=== PATIENT | female | born 1975 | race Caucasian/White ===

== ENCOUNTER 2021-01-14 14:38 | Emergency (ER) | payer SELFPAY ==
[2021-01-14 15:35] LABS: #Eosinphils 0.6 thou/uL (0.0-0.7); #Lymphocytes 1.3 thou/uL (1.20-3.40); #Monocytes 0.8 thou/uL (0.11-0.59); #Neutrophils 5.2 thou/uL (1.40-6.50); %Basophils 0.3 % (0.0-1.0); %Lymphocytes 16.5 % (21.0-51.0); %Monocytes 10.2 % (0.0-10.0); Hemoglobin 13.4 g/dL (12.0-16.0); Mean Corpuscular HGB CONC 33.2 g/dL (32.0-36.0); Mean Corpuscular Hemoglobin 33.2 pg (27.0-31.0); Mean Platelet Volume 8.7 fL (7.4-10.4); Platelet Count 162 thou/uL (130-400); Red Blood Cell (RBC) Count 4.03 mill/uL (4.20-5.40); White Blood Cell (WBC) Count 7.9 thou/uL (4.8-10.8)
[2021-01-14 15:52] LABS: ALT (SGPT) 21 U/L (8-55); AST (SGOT) 20 U/L (5-34); Albumin 3.6 g/dL (3.5-5.0); Alkaline Phosphatase 110 U/L (40-110); Anion Gap 12 mmol/L (10-20); BUN (Urea Nitrogen) 21 mg/dL (7.0-18.7); Calc. Creatinine Clearance 0 mL/min (70-130); Calcium 8.6 mg/dL (7.8-10.44); Carbon Dioxide 23 mmol/L (22-29); Chloride 106 mmol/L (98-107); Globulin 2.9 g/dL (2.4-3.5); Glucose 86 mg/dL (70-105); Protein, Total 6.5 g/dL (6.0-8.3); Sodium 137 mmol/L (136-145)
[2021-01-14 16:14] LABS: CKMB 2.3 ng/mL (0-6.6)
[2021-01-14] MEDS ORDERED: Furosemide 20 MG/2 ML VIAL ONE (16:49)
== END 2021-01-14 19:06 | disposition home or self-care (01) ==
LOC: ERS 14:38
DX: B37.2 Candidiasis of skin and nail (principal); L03.116 Cellulitis of left lower limb; R21 Rash and other nonspecific skin eruption; R06.02 Shortness of breath; R60.0 Localized edema; I10 Essential (primary) hypertension; F17.210 Nicotine dependence, cigarettes, uncomplicated
CPT/HCPCS: 71045; 80053; 82553; 83880; 84484; 85025; 93005; 96374; J1940

== ENCOUNTER 2021-02-28 17:11 | Observation (INO) | payer SELFPAY ==
[2021-02-28] MEDS ORDERED: Calcium Carbonate 500 MG ChewTAB PO PRN (19:47)
[2021-02-28] MEDS ORDERED: Loperamide HCl 2 MG CAP PO PRN (19:47)
[2021-02-28] MEDS ORDERED: Guaifenesin DM 100-10/5 ML UDCUP PO PRN (19:47)
[2021-02-28] MEDS ORDERED: Ondansetron PF 4 MG/2 ML Vial IVP PRN (19:47)
[2021-02-28] MEDS ORDERED: Zolpidem Tartrate 5 MG TAB PO PRN (19:47)
[2021-02-28] MEDS ORDERED: HYDROcodone/Acetaminophen 5/325 mg Tablet PO PRN (19:47)
[2021-02-28] MEDS ORDERED: Senokot S 8.6-50 MG TAB PO PRN (19:47)
[2021-02-28] MEDS ORDERED: Bisacodyl 10 MG SUPP PR PRN (19:47)
[2021-02-28] MEDS ORDERED: Ondansetron ODT 4 MG TAB PO PRN (19:47)
[2021-02-28] MEDS ORDERED: Acetaminophen 325 MG TAB PO PRN (19:47)
[2021-02-28] MEDS ORDERED: Nitroglycerin 0.4 MG TAB (25 Tab Bottle) SL PRN (19:50)
[2021-02-28 20:47] VITALS: BMI 66.5
[2021-02-28] MEDS ORDERED: Atorvastatin Calcium 40 MG TAB PO SCH (21:00)
[2021-02-28] MEDS: Doxycycline 100 MG CAP PO SCH (21:21)
[2021-02-28] MEDS: Betamethasone 0.1% Cream 15 GM TUBE TOP SCH (21:22)
[2021-02-28] MEDS: Famotidine 20 MG TAB PO SCH (21:22)
[2021-02-28 22:25] LABS: SARS-CoV-2 NAA Rapid Test Not Detected (NotDetected)
[2021-03-01 05:02] LABS: #Basophils 0.1 thou/uL (0.0-0.2); #Eosinphils 0.2 thou/uL (0.0-0.7); #Lymphocytes 1.7 thou/uL (1.20-3.40); #Neutrophils 7.9 thou/uL (1.40-6.50); %Basophils 0.5 % (0.0-1.0); %Eosinophils 1.7 % (0.0-10.0); %Lymphocytes 15.3 % (21.0-51.0); %Monocytes 9.6 % (0.0-10.0); %Neutrophils 72.9 % (42.0-75.0); Hemoglobin 14.8 g/dL (12.0-16.0); Mean Corpuscular HGB CONC 32.2 g/dL (32.0-36.0); Mean Corpuscular Hemoglobin 31.6 pg (27.0-31.0); Mean Corpuscular Volume 98.3 fL (78.0-98.0); Mean Platelet Volume 8.3 fL (7.4-10.4); Platelet Count 235 thou/uL (130-400); RBC Distribution Width 14.5 % (11.5-14.5); Red Blood Cell (RBC) Count 4.67 mill/uL (4.20-5.40); White Blood Cell (WBC) Count 10.9 thou/uL (4.8-10.8)
[2021-03-01] MEDS: Furosemide 40 MG/4 ML VIAL SLOW IVP SCH ×2 (05:05→13:23)
[2021-03-01 05:28] LABS: ALT (SGPT) 30 U/L (8-55); AST (SGOT) 23 U/L (5-34); Albumin 3.8 g/dL (3.5-5.0); Alkaline Phosphatase 111 U/L (40-110); Anion Gap 15 mmol/L (10-20); BUN (Urea Nitrogen) 29 mg/dL (7.0-18.7); Bilirubin, Total 1.5 mg/dL (0.2-1.2); CRP (Inflammatory) 1.57 mg/dL (= or < 0.5); Calc. Creatinine Clearance 170 mL/min (70-130); Calcium 9.1 mg/dL (7.8-10.44); Carbon Dioxide 18 mmol/L (22-29); Cardiac Risk 3.2 (Less than 4.5); Chloride 106 mmol/L (98-107); Cholesterol 123 mg/dl (< 200 Desired); Globulin 3.2 g/dL (2.4-3.5); Glucose 111 mg/dL (70-105); HDL Cholesterol 39 mg/dL (>60 Neg Risk); LDL Cholesterol, Calculated 68 mg/dL; Potassium 4.3 mmol/L (3.5-5.1); Sodium 135 mmol/L (136-145); Triglycerides 79 mg/dL (Less than 150)
[2021-03-01 05:50] LABS: Bacteria/HPF None Seen HPF (None Seen); Bilirubin Negative (Negative); Blood, Urine 3+ (Negative); Clarity Turbid (Clear); Glucose, Urine (Dipstick) Normal (Negative); Ketone, Urine Negative (Negative); Leukocyte 75 Leu/uL (Negative); Nitrite Negative (Negative); Protein, Urine (Dipstick) 600 mg/dL (Neg-Trace); RBC/HPF 21-50 HPF (0-3); Specific Gravity, Urine 1.034 (1.002-1.036); Urobilinogen Normal mg/dL (Less than 2)
[2021-03-01] MEDS ORDERED: Carvedilol 6.25 MG TAB PO SCH ×2 (08:00→17:00)
[2021-03-01] MEDS: Betamethasone 0.1% Cream 15 GM TUBE TOP SCH (08:19)
[2021-03-01] MEDS: Doxycycline 100 MG CAP PO SCH (08:19)
[2021-03-01] MEDS: Famotidine 20 MG TAB PO SCH (08:19)
[2021-03-01] MEDS ORDERED: Enoxaparin Sodium 40 MG/0.4 ML SYRINGE SC SCH (09:00)
[2021-03-01] MEDS ORDERED: NIFEdipine XL 30 MG TAB PO SCH (09:00)
[2021-03-01] MEDS ORDERED: Aspirin Chewable 81 MG TAB PO SCH (09:00)
[2021-03-01] MEDS ORDERED: Carvedilol 3.125 MG TAB PO SCH (10:30)
[2021-03-01 12:16] VITALS: TEMP 97.9
[2021-03-01 16:57] VITALS: BP 130/72
== END 2021-03-01 18:43 | disposition home or self-care (01) ==
LOC: 2SW 18:19
PROVIDERS: ADMIT Internal Medicine; ATTEND Internal Medicine
DX: R21 Rash and other nonspecific skin eruption (principal); E78.5 Hyperlipidemia, unspecified; I25.10 Atherosclerotic heart disease of native coronary artery without angina pectoris; I11.0 Hypertensive heart disease with heart failure; I50.33 Acute on chronic diastolic (congestive) heart failure; F17.210 Nicotine dependence, cigarettes, uncomplicated; J96.01 Acute respiratory failure with hypoxia; I21.A1 Myocardial infarction type 2; I89.0 Lymphedema, not elsewhere classified; I87.2 Venous insufficiency (chronic) (peripheral); N17.9 Acute kidney failure, unspecified; E66.01 Morbid (severe) obesity due to excess calories; Z68.44 Body mass index [BMI] 60.0-69.9, adult; Z88.0 Allergy status to penicillin; Z20.822 Contact with and (suspected) exposure to COVID-19
CPT/HCPCS: 0240U; 36415; 80053; 80061; 81001; 83735; 84443; 84550; 85025; 86140; 94640; 96372; 96374; 96376; G0378; J1650; J1940; J7620

== ENCOUNTER 2021-03-26 06:16 | Inpatient (IN) | payer SELFPAY ==
[2021-03-26] MEDS ORDERED: Aspirin 325 MG TAB ONE (06:43)
[2021-03-26 07:17] LABS: #Eosinphils 0.1 thou/uL (0.0-0.7); #Monocytes 0.5 thou/uL (0.11-0.59); #Neutrophils 5.5 thou/uL (1.40-6.50); %Eosinophils 1.9 % (0.0-10.0); %Lymphocytes 13.6 % (21.0-51.0); %Monocytes 7.4 % (0.0-10.0); %Neutrophils 77.2 % (42.0-75.0); Hemoglobin 13.8 g/dL (12.0-16.0); Mean Corpuscular HGB CONC 32.8 g/dL (32.0-36.0); Mean Corpuscular Hemoglobin 31.9 pg (27.0-31.0); Mean Corpuscular Volume 97.3 fL (78.0-98.0); Mean Platelet Volume 8.8 fL (7.4-10.4); Platelet Count 233 thou/uL (130-400); RBC Distribution Width 15.3 % (11.5-14.5); Red Blood Cell (RBC) Count 4.33 mill/uL (4.20-5.40); White Blood Cell (WBC) Count 7.1 thou/uL (4.8-10.8)
[2021-03-26 07:20] LABS: BHCG - Serum Negative (NEGATIVE); Pregs Control Background? CLEAR/WHITE (CLR/WHITE); Pregs Control Bar Appear? YES (CONTROL BAR)
[2021-03-26 07:29] LABS: ALT (SGPT) 31 U/L (8-55); AST (SGOT) 26 U/L (5-34); Albumin 3.8 g/dL (3.5-5.0); Alkaline Phosphatase 128 U/L (40-110); Anion Gap 14 mmol/L (10-20); BUN (Urea Nitrogen) 13 mg/dL (7.0-18.7); Bilirubin, Total 1.5 mg/dL (0.2-1.2); Calc. Creatinine Clearance 0 mL/min (70-130); Calcium 8.9 mg/dL (7.8-10.44); Carbon Dioxide 22 mmol/L (22-29); Chloride 104 mmol/L (98-107); Globulin 2.8 g/dL (2.4-3.5); Glucose 103 mg/dL (70-105); Lipase 5 U/L (8-78); Potassium 3.8 mmol/L (3.5-5.1); Protein, Total 6.6 g/dL (6.0-8.3); Sodium 136 mmol/L (136-145)
[2021-03-26] MEDS ORDERED: Nitroglycerin 2% Ointment 1 INCH/1 GM Packet ONE (07:44)
[2021-03-26] MEDS ORDERED: Furosemide 40 MG/4 ML VIAL ONE (07:44)
[2021-03-26] MEDS ORDERED: Iopamidol-370 76% 500 ML 1 ML ONE (08:32)
[2021-03-26] MEDS ORDERED: Senokot S 8.6-50 MG TAB PO PRN (08:45)
[2021-03-26] MEDS ORDERED: Ondansetron PF 4 MG/2 ML Vial IVP PRN (08:45)
[2021-03-26] MEDS ORDERED: Guaifenesin DM 100-10/5 ML UDCUP PO PRN (08:45)
[2021-03-26] MEDS ORDERED: Acetaminophen 325 MG TAB PO PRN (08:45)
[2021-03-26] MEDS ORDERED: Enoxaparin Sodium 40 MG/0.4 ML SYRINGE SC SCH (09:00)
[2021-03-26 10:03] LABS: Bacteria/HPF None Seen HPF (None Seen); Bilirubin Negative (Negative); Blood, Urine Trace (Negative); Clarity Clear (Clear); Glucose, Urine (Dipstick) Normal (Negative); Ketone, Urine Negative (Negative); Leukocyte 25 Leu/uL (Negative); Nitrite Negative (Negative); Protein, Urine (Dipstick) 30 mg/dL (Neg-Trace); RBC/HPF 0-3 HPF (0-3); Specific Gravity, Urine 1.018 (1.002-1.036); Squamous Epithelial 0-3 HPF (0-3); Urobilinogen Normal mg/dL (Less than 2); WBC/HPF 0-3 HPF (0-3); pH, Urine 6.5 (5.0-9.0)
[2021-03-26 11:23] LABS: Troponin I 0.018 ng/mL (< 0.028)
[2021-03-26] MEDS ORDERED: Enoxaparin Sodium 40 MG/0.4 ML SYRINGE ONE (11:41)
[2021-03-26] MEDS ORDERED: Furosemide 40 MG/4 ML VIAL SLOW IVP SCH (14:00)
[2021-03-26] MEDS ORDERED: hydrALAZINE 25 MG TAB PO SCH (15:00)
[2021-03-26] MEDS ORDERED: Carvedilol 6.25 MG TAB PO SCH (17:00)
[2021-03-26] MEDS ORDERED: Atorvastatin Calcium 40 MG TAB PO SCH (21:00)
[2021-03-27] MEDS ORDERED: Lisinopril 5 MG TAB PO SCH (09:00)
[2021-03-27] MEDS ORDERED: Aspirin 81 mg Enteric Coated Tablet PO SCH (09:00)
[2021-03-27 15:19] LABS: SARS-CoV-2 PCR by NAA Not Detected (NotDetected)
== END 2021-03-26 08:55 | disposition short-term general hospital (02) | DRG 292 ==
LOC: ERS 06:16 → ERHOLD 08:55
PROVIDERS: ADMIT Internal Medicine; ATTEND Internal Medicine
DX: I11.0 Hypertensive heart disease with heart failure (principal); Z68.43 Body mass index [BMI] 50.0-59.9, adult; E87.70 Fluid overload, unspecified; E78.5 Hyperlipidemia, unspecified; I50.810 Right heart failure, unspecified; L53.9 Erythematous condition, unspecified; R21 Rash and other nonspecific skin eruption; R07.9 Chest pain, unspecified; Z20.822 Contact with and (suspected) exposure to COVID-19; E66.01 Morbid (severe) obesity due to excess calories; F17.210 Nicotine dependence, cigarettes, uncomplicated; I27.29 Other secondary pulmonary hypertension; Z88.0 Allergy status to penicillin; Z71.6 Tobacco abuse counseling
CPT/HCPCS: 36415; 71045; 71275; 80053; 81003; 81015; 83690; 83880; 84484; 84703; 85025; 93005; 96374; J1650; J1940; Q9967; U0003; U0005

== ENCOUNTER 2024-09-15 13:29 | Inpatient (IN) | payer OTHER ==
[2024-09-15] MEDS ORDERED: Acetaminophen 325 MG TAB PO PRN (14:32)
[2024-09-15] MEDS ORDERED: Morphine 4 MG/ML VIAL SLOW IVP PRN (14:35)
[2024-09-15 14:56] LABS: #Basophils 0.04 10x3/uL (0.0-0.2); %Basophils 0.5 % (0.0-1.0); %Lymphocytes 12.1 % (21.0-51.0); Hematocrit 40.2 % (36.0-47.0); Mean Corpuscular HGB CONC 32.3 g/dL (32.0-36.0); Mean Corpuscular Hemoglobin 30.1 pg (27.0-31.0); Mean Corpuscular Volume 93.1 fL (78.0-98.0); Mean Platelet Volume 11.2 fL (7.4-10.4); Platelet Count 181 10x3/uL (130-400); RBC Distribution Width 16.5 % (11.5-14.5); Red Blood Cell (RBC) Count 4.32 mill/uL (4.20-5.40)
[2024-09-15 15:08] LABS: Lactic Acid 1.06 mmol/L (0.5-2.2)
[2024-09-15 15:12] LABS: ALT (SGPT) 16 U/L (8-55); AST (SGOT) 23 U/L (5-34); Albumin 3.7 g/dL (3.5-5.0); Alkaline Phosphatase 125 U/L (40-110); Anion Gap 16 mmol/L (10-20); BUN (Urea Nitrogen) 24 mg/dL (7.0-18.7); Calc. Creatinine Clearance 0 mL/min (70-130); Calcium 8.9 mg/dL (7.8-10.44); Carbon Dioxide 20 mmol/L (22-29); Chloride 102 mmol/L (98-107); Estimated GFR 59; Globulin 3.2 g/dL (2.4-3.5); Glucose 94 mg/dL (70-105); Potassium 3.1 mmol/L (3.5-5.1); Protein, Total 6.9 g/dL (6.0-8.3); Sodium 135 mmol/L (136-145)
[2024-09-15] MEDS: metroNIDAZOLE 500 MG in Premix 1 BAG IVPB SCH ×2 (16:15→20:42)
[2024-09-15] MEDS: Potassium Chloride 20 MEQ TAB PO SCH (16:15)
[2024-09-15] MEDS: Cefepime 2 GM in Sodium Chloride 0.9% 100 ML IVPB SCH (18:09)
[2024-09-15] MEDS ORDERED: Ipratropium/Albuterol 3 ML NEB NEB PRN (20:16)
[2024-09-15] MEDS: Sildenafil Citrate 20 MG TAB PO SCH (20:42)
[2024-09-15] MEDS: Furosemide 40 MG (4 mL) VIAL SLOW IVP SCH (20:42)
[2024-09-15 22:32] LABS: Actual Bicarbonate (HCO3a) 22.2 mEq/L (22-28); CO2 Tension 36.4 mmHg (35.0-45.0); Calcium, Ionized (arterial) 1.15 mmol/L (1.12-1.30); Carboxyhemoglobin (COHb) 0.9 gm% (0.0-3.0); Hematocrit-ABG 41 % (36.0-47.0); Potassium - ABG Lab 3.99 mmol/L (3.70-5.30); pH, Arterial 7.403 (7.35-7.45)
[2024-09-15 22:33] LABS: Puncture Site RBRA
[2024-09-16 05:35] LABS: #Basophils 0.03 10x3/uL (0.0-0.2); %Basophils 0.6 % (0.0-1.0); %Eosinophils 3.3 % (0.0-10.0); %Lymphocytes 16.2 % (21.0-51.0); %Monocytes 12.7 % (0.0-10.0); %Neutrophils 66.6 % (42.0-75.0); Hematocrit 39.1 % (36.0-47.0); Hemoglobin 12.4 g/dL (12.0-16.0); Mean Corpuscular HGB CONC 31.7 g/dL (32.0-36.0); Mean Corpuscular Hemoglobin 30.1 pg (27.0-31.0); Mean Corpuscular Volume 94.9 fL (78.0-98.0); Mean Platelet Volume 11.5 fL (7.4-10.4); Platelet Count 161 10x3/uL (130-400); RBC Distribution Width 16.7 % (11.5-14.5); Red Blood Cell (RBC) Count 4.12 mill/uL (4.20-5.40)
[2024-09-16 06:01] LABS: Anion Gap 17 mmol/L (10-20); BUN (Urea Nitrogen) 27 mg/dL (7.0-18.7); Calc. Creatinine Clearance 100 mL/min (70-130); Calcium 8.9 mg/dL (7.8-10.44); Carbon Dioxide 23 mmol/L (22-29); Chloride 100 mmol/L (98-107); Estimated GFR 43; Glucose 94 mg/dL (70-105); Potassium 3.8 mmol/L (3.5-5.1); Sodium 136 mmol/L (136-145)
[2024-09-16 08:52] VITALS: BMI 55.6
[2024-09-16] MEDS: HYDROcodone/Acetaminophen 7.5/325 mg Tablet PO PRN (10:49)
[2024-09-16] MEDS: Furosemide 40 MG TAB PO SCH (10:51)
[2024-09-16] MEDS: Aspirin 81 mg Enteric Coated Tablet PO SCH (10:51)
[2024-09-16] MEDS: Ondansetron ODT 4 MG TAB PO PRN (19:57)
[2024-09-17 12:01] LABS: Anion Gap 15 mmol/L (10-20); BUN (Urea Nitrogen) 32 mg/dL (7.0-18.7); Calc. Creatinine Clearance 86 mL/min (70-130); Calcium 8.5 mg/dL (7.8-10.44); Carbon Dioxide 22 mmol/L (22-29); Chloride 102 mmol/L (98-107); Estimated GFR 35; Glucose 102 mg/dL (70-105); Potassium 3.6 mmol/L (3.5-5.1); Sodium 135 mmol/L (136-145)
[2024-09-17] MEDS: Cefepime 1 GM in Sodium Chloride 0.9% 100 ML IVPB SCH (17:19)
[2024-09-18] MEDS: Furosemide 80 MG TAB PO SCH (10:31)
[2024-09-18] MEDS ORDERED: Furosemide 40 MG (4 mL) VIAL SLOW IVP SCH (11:30)
[2024-09-18] MEDS: Furosemide 40 MG (4 mL) VIAL SLOW IVP SCH (16:22)
[2024-09-18] MEDS: FLU (Fluarix Triv) TS24-25(6MOS UP)/PF 45 MCG/0.5 ML Syringe IM ONE (17:50)
[2024-09-18 18:17] LABS: Bilirubin Negative (Negative); Blood, Urine Negative (Negative); Clarity Clear (Clear); Glucose, Urine (Dipstick) Normal (Negative); Ketone, Urine Negative (Negative); Leukocyte Negative Leu/uL (Negative); Nitrite Negative (Negative); Protein, Urine (Dipstick) Negative (Neg-Trace); RBC/HPF None Seen HPF (0-3); Specific Gravity, Urine 1.002 (1.002-1.036); Squamous Epithelial 0-3 HPF (0-3); Urobilinogen Normal mg/dL (Less than 2); WBC/HPF 0-3 HPF (0-3)
[2024-09-18 18:24] LABS: Bacteria/HPF 1+ HPF (None Seen)
[2024-09-19 09:43] LABS: Anion Gap 15 mmol/L (10-20); BUN (Urea Nitrogen) 22 mg/dL (7.0-18.7); Calc. Creatinine Clearance 147 mL/min (70-130); Calcium 8.6 mg/dL (7.8-10.44); Carbon Dioxide 24 mmol/L (22-29); Chloride 98 mmol/L (98-107); Estimated GFR 67; Glucose 105 mg/dL (70-105); Potassium 2.9 mmol/L (3.5-5.1); Sodium 134 mmol/L (136-145)
[2024-09-19 10:19] LABS: Reflex for Review? - EOS NO
[2024-09-19] MEDS: Potassium Chloride 20 MEQ TAB PO SCH ×2 (11:52→15:19)
[2024-09-19] MEDS ORDERED: Furosemide 40 MG TAB PO SCH (14:00)
[2024-09-19] MEDS: metroNIDAZOLE 500 MG TAB PO SCH (15:19)
[2024-09-19] MEDS: Furosemide 40 MG (4 mL) VIAL SLOW IVP SCH (15:20)
[2024-09-19] MEDS: Cefepime 2 GM in Sodium Chloride 0.9% 100 ML IVPB SCH (17:47)
[2024-09-19] MEDS: Ciprofloxacin 500 MG TAB PO SCH (19:47)
[2024-09-20 05:47] LABS: Anion Gap 14 mmol/L (10-20); BUN (Urea Nitrogen) 21 mg/dL (7.0-18.7); Calc. Creatinine Clearance 132 mL/min (70-130); Calcium 8.7 mg/dL (7.8-10.44); Carbon Dioxide 23 mmol/L (22-29); Chloride 101 mmol/L (98-107); Estimated GFR 59; Glucose 101 mg/dL (70-105); Magnesium 1.8 mg/dL (1.6-2.6); Potassium 3.7 mmol/L (3.5-5.1); Sodium 134 mmol/L (136-145)
[2024-09-20] MEDS: Furosemide 40 MG TAB PO SCH (07:33)
[2024-09-20] MEDS: Ondansetron PF 4 MG/2 ML Vial IVP PRN (08:22)
[2024-09-21 04:45] LABS: Anion Gap 13 mmol/L (10-20); BUN (Urea Nitrogen) 17 mg/dL (7.0-18.7); Calc. Creatinine Clearance 146 mL/min (70-130); Calcium 8.6 mg/dL (7.8-10.44); Carbon Dioxide 29 mmol/L (22-29); Chloride 98 mmol/L (98-107); Estimated GFR 67; Glucose 108 mg/dL (70-105); Potassium 3.3 mmol/L (3.5-5.1); Sodium 137 mmol/L (136-145)
[2024-09-21] MEDS ORDERED: Furosemide 40 MG TAB PO SCH (08:13)
[2024-09-21] MEDS: Furosemide 80 MG TAB PO SCH (09:12)
[2024-09-21] MEDS ORDERED: Furosemide 80 MG TAB PO SCH ×2 (09:15)
[2024-09-21] MEDS: Nystatin Cream 15 GM TUBE TOP SCH (10:09)
[2024-09-21] MEDS: Potassium Chloride 20 MEQ TAB PO SCH (15:42)
[2024-09-21 20:02] VITALS: BP 106/70; TEMP 97.8
== END 2024-09-21 22:05 | disposition home or self-care (01) | DRG 157 ==
LOC: MSONC 14:19
PROVIDERS: ADMIT Internal Medicine; ATTEND Internal Medicine
DX: M27.2 Inflammatory conditions of jaws (principal); J96.21 Acute and chronic respiratory failure with hypoxia; I50.32 Chronic diastolic (congestive) heart failure; J96.11 Chronic respiratory failure with hypoxia; Z68.43 Body mass index [BMI] 50.0-59.9, adult; L03.211 Cellulitis of face; N17.9 Acute kidney failure, unspecified; I13.0 Hypertensive heart and chronic kidney disease with heart failure and stage 1 through stage 4 chronic kidney disease, or unspecified chronic kidney disease; E87.1 Hypo-osmolality and hyponatremia; E66.01 Morbid (severe) obesity due to excess calories; E78.5 Hyperlipidemia, unspecified; G47.33 Obstructive sleep apnea (adult) (pediatric); I25.10 Atherosclerotic heart disease of native coronary artery without angina pectoris; I27.20 Pulmonary hypertension, unspecified; E87.6 Hypokalemia; N18.30 Chronic kidney disease, stage 3 unspecified; E87.5 Hyperkalemia; Z90.710 Acquired absence of both cervix and uterus; Z88.0 Allergy status to penicillin
CPT/HCPCS: 36415; 71045; 80048; 81001; 82805; 83605; 83735; 84145; 85025; 89190; J0692; J1940; J2405; Q0162

== ENCOUNTER 2024-10-11 01:54 | Emergency (ER) | payer OTHER ==
[2024-10-11 03:04] LABS: #Basophils Less than 0.03 10x3/uL (0.0-0.2); %Basophils 0.4 % (0.0-1.0); %Eosinophils 4.9 % (0.0-10.0); %Lymphocytes 23.7 % (21.0-51.0); %Monocytes 9.3 % (0.0-10.0); %Neutrophils 61.5 % (42.0-75.0); Hematocrit 39.8 % (36.0-47.0); Hemoglobin 12.8 g/dL (12.0-16.0); Mean Corpuscular HGB CONC 32.2 g/dL (32.0-36.0); Mean Corpuscular Hemoglobin 30.4 pg (27.0-31.0); Mean Corpuscular Volume 94.5 fL (78.0-98.0); Mean Platelet Volume 10.7 fL (7.4-10.4); Platelet Count 186 10x3/uL (130-400); RBC Distribution Width 17.5 % (11.5-14.5); Red Blood Cell (RBC) Count 4.21 mill/uL (4.20-5.40)
[2024-10-11] MEDS ORDERED: Acetaminophen 500 MG TAB ONE (03:04)
[2024-10-11] MEDS ORDERED: Furosemide 40 MG (4 mL) VIAL ONE (03:04)
[2024-10-11] MEDS ORDERED: Acetaminophen 325 MG TAB ONE (03:11)
[2024-10-11 03:20] LABS: ALT (SGPT) 15 U/L (8-55); AST (SGOT) 28 U/L (5-34); Albumin 3.7 g/dL (3.5-5.0); Alkaline Phosphatase 117 U/L (40-110); Anion Gap 15 mmol/L (10-20); BUN (Urea Nitrogen) 12 mg/dL (7.0-18.7); Bilirubin, Total 2.4 mg/dL (0.2-1.2); Calc. Creatinine Clearance 0 mL/min (70-130); Calcium 8.6 mg/dL (7.8-10.44); Carbon Dioxide 23 mmol/L (22-29); Chloride 103 mmol/L (98-107); Estimated GFR 86; Globulin 3.4 g/dL (2.4-3.5); Glucose 100 mg/dL (70-105); Potassium 3.1 mmol/L (3.5-5.1); Protein, Total 7.1 g/dL (6.0-8.3); Sodium 138 mmol/L (136-145)
[2024-10-11 03:25] LABS: Troponin I 0.018 ng/mL (< 0.028)
== END 2024-10-11 04:49 | disposition home or self-care (01) ==
LOC: ERS 01:54
DX: I50.31 Acute diastolic (congestive) heart failure (principal); I10 Essential (primary) hypertension; Z79.82 Long term (current) use of aspirin; Z87.891 Personal history of nicotine dependence
CPT/HCPCS: 71045; 80053; 83880; 84484; 85025; 93005; 96374; J1940

== ENCOUNTER 2025-07-13 03:51 | Emergency (ER) | payer OTHER ==
[2025-07-13 04:32] LABS: #Basophils Less than 0.03 10x3/uL (0.0-0.2); #Eosinophils 0.26 10x3/uL (0.0-0.7); #Monocytes 0.76 10x3/uL (0.11-0.59); #Neutrophils 6.49 10x3/uL (1.40-6.50); %Basophils 0.2 % (0.0-1.0); %Eosinophils 3.2 % (0.0-10.0); %Lymphocytes 8.5 % (21.0-51.0); %Monocytes 9.2 % (0.0-10.0); %Neutrophils 78.7 % (42.0-75.0); Hematocrit 35.8 % (36.0-47.0); Hemoglobin 10.8 g/dL (12.0-16.0); Mean Corpuscular Hemoglobin 26.5 pg (27.0-31.0); Mean Corpuscular Volume 87.7 fL (78.0-98.0); Platelet Count 227 10x3/uL (130-400); Red Blood Cell (RBC) Count 4.08 mill/uL (4.20-5.40); White Blood Cell (WBC) Count 8.25 10x3/uL (4.8-10.8)
[2025-07-13 04:47] LABS: Albumin 3.6 g/dL (3.1-4.5); Anion Gap 16 mmol/L (10-20); BUN (Urea Nitrogen) 10 mg/dL (7.0-18.7); Bilirubin, Total 1.5 mg/dL (0.3-1.2); Calc. Creatinine Clearance 0 mL/min (70-130); Calcium 9.1 mg/dL (7.8-10.44); Carbon Dioxide 25 mmol/L (22-29); Chloride 100 mmol/L (98-107); Globulin 3.2 g/dL (2.4-3.5); Glucose 102 mg/dL (70-105); Potassium 2.7 mmol/L (3.5-5.1); Sodium 138 mmol/L (136-145)
[2025-07-13 04:48] LABS: ALT (SGPT) 13 U/L (Less than 34); AST (SGOT) 20 U/L (11-34)
[2025-07-13 05:01] LABS: Alkaline Phosphatase 104 U/L (40-110)
[2025-07-13] MEDS ORDERED: Furosemide 40 MG (4 mL) VIAL ONE (05:35)
[2025-07-13 06:18] LABS: Actual Bicarbonate (HCO3v) 26.3 mEq/L (22-28); Base Excess 1.7 mEq/L (-2.0 to +3.0); Calcium, Ionized (venous) 1.05 mmol/L (1.16-1.32); Chloride (VBG) 100 mmol/L (98-106); Hematocrit-VBG 35 % (36.0-47.0); Hemoglobin (Hb) 12.0 g/dL (11.7-16.0); Potassium (VBG) 2.80 mmol/L (3.70-5.30); Sodium 138 mmol/L (133-146)
[2025-07-13] MEDS ORDERED: Ondansetron PF 4 MG/2 ML Vial ONE (07:06)
[2025-07-13 09:46] LABS: Influenza A by NAA Not Detected (NotDetected); Influenza B by NAA Not Detected (NotDetected); RSV by NAA Not Detected (NotDetected); SARS-CoV-2 NAA Rapid Test Not Detected (NotDetected)
== END 2025-07-13 12:31 | disposition short-term general hospital (02) ==
LOC: ERS 03:51
DX: I27.20 Pulmonary hypertension, unspecified (principal); I50.9 Heart failure, unspecified; Z79.82 Long term (current) use of aspirin; Z87.891 Personal history of nicotine dependence; Z79.899 Other long term (current) drug therapy
CPT/HCPCS: 36415; 71045; 80053; 82805; 83880; 84484; 85025; 87637; 93005; 94760; 96374; 96375; J1940; J2405